=== PATIENT | female | born 1980 | race Caucasian/White ===

== ENCOUNTER 2024-12-30 14:57 | Emergency (ER) | payer OTHER ==
[~2024-12-30] VITALS: Ht 162.6 cm; Wt 56.7 kg
[2024-12-30] MEDS ORDERED: CLAR10CA3 PO (15:28)
[2024-12-30] MEDS ORDERED: MONT-5 PO (15:28)
[2024-12-30] MEDS ORDERED: LIPI10TA PO (15:28)
[2024-12-30] MEDS ORDERED: ZOLO50TA PO (15:28)
[2024-12-30 15:57] LABS: KETONE, URINE AUTO RFX NEGATIVE (NEGATIVE); LEUKOCYTE ESTERASE UR AUTO RFX NEGATIVE (NEGATIVE); NITRITE, URINE AUTO RFX NEGATIVE (NEGATIVE); RBC, URINE AUTO RFX 0 /HPF (0-3); SQUAM EPITHELIAL CELL UR AURFX 0 /HPF (0-6); WBC, URINE AUTO RFX 0 /HPF (0-3)
[2024-12-30 16:00] LABS: BASO % 0.5 % (0.0-1.0); EOS # 0.1 10^3/uL (0.0-0.5); HEMATOCRIT 35.4 % (36.0-47.0); HEMOGLOBIN 11.7 g/dl (12.0-15.5); LYMPH % 24.7 % (24.0-44.0); MEAN CORPUSCULAR HGB CONC 33.1 g/dl (32.0-36.5); MEAN CORPUSCULAR VOLUME 93.7 fl (80.0-96.0); MONO # 0.6 10^3/uL (0.0-0.8); NEUTROPHILS # 5.3 10^3/uL (1.5-8.5); NEUTROPHILS % 66.4 % (36.0-66.0); PLATELET COUNT, AUTOMATED 233 10^3/uL (150-450); RED BLOOD COUNT 3.78 10^6/uL (4.00-5.40); WHITE BLOOD COUNT 7.9 10^3/uL (4.0-10.0)
[2024-12-30 16:32] LABS: ALKALINE PHOSPHATASE 48 U/L (35-104); ALT/SGPT 41 U/L (7.0-40); AST/SGOT 89 U/L (<34); BILIRUBIN,TOTAL 0.4 MG/DL (0.3-1.2); BLOOD UREA NITROGEN 20 MG/DL (9-23); CALCIUM LEVEL 8.3 MG/DL (8.5-10.1); CARBON DIOXIDE LEVEL 29 MMOL/L (20-31); CHLORIDE LEVEL 98 MMOL/L (98-107); CREATININE FOR GFR 0.77 MG/DL (0.55-1.30); GLOMERULAR FILTRATION RATE > 90.0 (>58); GLUCOSE, FASTING 90 MG/DL (60-100); POTASSIUM SERUM 4.1 MMOL/L (3.5-5.1); SODIUM LEVEL 135 MMOL/L (136-145)
[2024-12-30 16:36] LABS: HEPATITIS B SURFACE ANTIBODY POSITIVE (POSITIVE)
[2024-12-30 16:46] LABS: HCG, SERUM QUALITATIVE NEGATIVE (NEGATIVE)
[2024-12-30 16:49] LABS: HEPATITIS B SURFACE ANTIGEN NEGATIVE (NEGATIVE)
[2024-12-30 17:01] LABS: HIV 1&2 SCREEN NEGATIVE (NEGATIVE)
[2024-12-30 17:09] LABS: HEPATITIS C VIRUS ABY INDEX < 0.02 INDEX (<0.8)
[2024-12-30 17:26] LABS: GC DNA AMPLIFICATION NEGATIVE (NEGATIVE)
[2024-12-30] MEDS: AZITHROMYCIN 250MG TABLET PO ONE (21:15)
[2024-12-30] MEDS: metroNIDAZOLE (FLAGYL) 500MG TABLET PO ONE (21:16)
[2024-12-30] MEDS: cefTRIAXone 500MG VIAL IM ONE (21:18)
[2024-12-30] MEDS: LIDOCAINE 1% SDV 5ML VIAL DILUENT ONE (21:19)
[2024-12-30] MEDS ORDERED: RALT40TA PO (22:55)
[2024-12-30] MEDS ORDERED: EMTR1TAB16 PO (22:55)
[2024-12-30] MEDS ORDERED: EXPOSURE KIT-ADULT 7 DAY SUPPLY PO ONE (22:55)
[2024-12-30] MEDS: EMTRICITABINE/TENOFOVIR 200MG/300MG TABLET PO ONE (23:00)
[2024-12-30] MEDS: RALTEGRAVIR 400 MG TAB (ISENTRESS) PO ONE (23:00)
[2024-12-30 23:52] VITALS: BP 128/78; TEMP 98.9; O2SAT 100
[2024-12-31] MEDS ORDERED: RALTEGRAVIR 400 MG TAB (ISENTRESS) PO SCH
[2024-12-31] MEDS ORDERED: EMTRICITABINE/TENOFOVIR 200MG/300MG TABLET PO SCH
== END 2024-12-30 23:57 | disposition home or self-care (01) ==
LOC: M ED 14:57
DX: T76.21XA Adult sexual abuse, suspected, initial encounter (principal); F12.10 Cannabis abuse, uncomplicated; Z79.899 Other long term (current) drug therapy
CPT/HCPCS: 80053; 81001; 84703; 85025; 86706; 86780; 86803; 87340; 87389; 87810; 87850; 96372; 99284; J0696